=== PATIENT | male | born 1995 | race Caucasian/White ===

== ENCOUNTER 2017-05-16 16:06 | Emergency (ER) | payer MEDICAID ==
[~2017-05-16] VITALS: Ht 162.6 cm; Wt 72.1 kg
[2017-05-16 19:11] LABS: BASOPHIL % 0.2 % (0-2); PLATELET COUNT 357 x10^3mcL (130-400); RED CELL DISTRIBUTION WIDTH 12.3 % (11.5-14.5)
[2017-05-16 19:21] LABS: CALCIUM 9.1 mg/dL (8.5-10.1); CARBON DIOXIDE 27.8 mmol/L (21-32); CHLORIDE SERUM 101 mmol/L (98-107); CREATININE SERUM 0.9 mg/dL (0.7-1.3); GFR1 > 60 mL/min; GLUCOSE SERUM 102 mg/dL (74-106); POTASSIUM SERUM 3.5 mmol/L (3.5-5.1); SODIUM SERUM 136 mmol/L (136-145)
[2017-05-16 19:34] LABS: ALBUMIN 4.3 g/dL (3.4-5.0); ALKALINE PHOSPHATASE 67 U/L (46-116); ALT/SGPT 36 U/L (16-63); AST/SGOT 24 U/L (15-37); BILIRUBIN TOTAL 0.83 mg/dL (0.20-1.00); C REACTIVE PROTEIN 1.6 mg/dL (<=0.9)
[2017-05-16 19:35] LABS: T3 TOTAL 1.05 ng/mL; TOTAL PROTEIN, SERUM 8.8 g/dL (6.4-8.2)
[2017-05-16 19:45] LABS: FREE T4 0.96 ng/dL (0.76-1.46); FREE THYROXINE INDEX 2.7 ug/dL (1.4-4.5); T4(THYROXINE) 7.3 ug/dL (4.7-13.3)
[2017-05-16 19:47] LABS: CK-MB < 0.5 ng/mL (0-3.6); CREATINE KINASE 145 U/L (39-308)
[2017-05-16 20:22] LABS: microscopic required? YES; urine erythrocyte NEGATIVE (NEGATIVE)
[2017-05-16 21:03] LABS: ERYTHROCYTE SED RATE 12 mm/hr (0-15)
[2017-05-16 21:29] LABS: APPEARANCE CSF CLEAR; COLOR CSF COLORLESS
[2017-05-16 21:33] LABS: RBC CSF 54 /cumm (0); WBC CSF 0 /cumm (0-5)
[2017-05-16 21:34] LABS: APPEARANCE CSF CLEAR; COLOR CSF COLORLESS; RBC CSF 98 /cumm (0); WBC CSF 0 /cumm (0-5)
[2017-05-17 01:23] VITALS: BP 117/50
== END 2017-05-17 01:23 | disposition home or self-care (01) ==
LOC: ED 16:06
PROVIDERS: Specialist
DX: R51 Headache (principal); R11.2 Nausea with vomiting, unspecified
CPT/HCPCS: 83880; 84439; 87804; J1885; J2001; J2405; J3010; J7030; Q0092; Q9967